=== PATIENT | female | born 1970 | race Caucasian/White ===

== ENCOUNTER 2017-03-08 22:52 | Emergency (ER) | payer OTHER ==
[~2017-03-08] VITALS: Ht 165.1 cm; Wt 92.7 kg
[~2017-03-08 22:52] MED LIST: FOLI1TAB8 PO; LEVO100T35 PO; MULTTAB58 PO
[2017-03-08 22:53] VITALS: TEMP 36.6; Ht 165.1 cm; Wt 92.7 kg
[2017-03-08] MEDS ORDERED: LEVO100T7 PO (23:13)
[2017-03-08] MEDS ORDERED: VITACAP26 PO (23:14)
[2017-03-08] MEDS ORDERED: ERGO500037 PO (23:15)
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
[2017-03-08] MEDS ORDERED: OPTIRAY 320 IV PRN (23:45)
[2017-03-08 23:57] LABS: BASO % 0.3 %; BASO ABS # 0.02 K/uL (0-0.2); COMPLETE YES; EOS % 4.8 %; HEMATOCRIT 40.2 % (37-47); IG% 0.2 %; LYMPH % 44.3 %; LYMPH ABS # 2.85 K/uL (1.2-3.4); MEAN CELL VOLUME 94.8 fL (80-100); MEAN CORPUSCULAR HEMOGLOBIN 30.9 pg (25-34); MEAN CORPUSCULAR HGB CONC 32.6 g/dl (32-36); MEAN PLATELET VOLUME 9.7 fL (7.4-10.4); MONO % 7.6 %; NEUT % 42.8 %; PLATELET COUNT 207 K/uL (130-400); RED BLOOD COUNT 4.24 M/uL (4.2-5.4); WHITE BLOOD COUNT 6.44 K/uL (4.8-10.8)
[2017-03-09 00:13] LABS: BUN/CREATININE RATIO 22.1 (10-20); CREATININE 0.77 mg/dl (0.60-1.20); POTASSIUM 3.5 mmol/L (3.5-5.1)
[2017-03-09] MEDS ORDERED: ACETAMINOPHEN 500 MG TAB PO STA (00:15)
[2017-03-09 00:16] LABS: ALB/GLOB RATIO 1.1 (0.9-2)
[2017-03-09] MEDS ORDERED: PENICILLIN V POTASSIUM 250 MG TAB PO ONE (02:00)
[2017-03-09] MEDS ORDERED: TRAMADOL HCL 50 MG HOME PACK PO ONE (02:15)
[2017-03-09] MEDS ORDERED: PENI-82 PO (02:21)
[2017-03-09] MEDS ORDERED: TRAM-10 PO (02:21)
[2017-03-09 02:24] VITALS: BP 123/88; PULSE 74; O2SAT 98
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
== END 2017-03-09 02:28 | disposition home or self-care (01) ==
LOC: C.EDB 22:53
DX: K08.89 Other specified disorders of teeth and supporting structures (principal); R68.84 Jaw pain; Z79.899 Other long term (current) drug therapy

== ENCOUNTER 2017-03-14 17:51 | Emergency (ER) | payer OTHER ==
[~2017-03-14] VITALS: Ht 167.6 cm; Wt 90.5 kg
[~2017-03-14 17:51] MED LIST changes: +ERGO500037 PO; -FOLI1TAB8 PO; -LEVO100T35 PO; +LEVO100T7 PO; +PENI-82 PO; +TRAM-10 PO; +VITACAP26 PO
[2017-03-14 17:57] VITALS: TEMP 36.6; Ht 167.6 cm; Wt 90.5 kg
[2017-03-14] MEDS ORDERED: MoRPHine SULFATE 2 MG/ML CARP IV STA (18:18)
[2017-03-14] MEDS ORDERED: ONDANSETRON INJ 2 MG/ML 2 ML VIAL IV STA (18:18)
[2017-03-14] MEDS ORDERED: OPTIRAY 320 IV PRN (18:30)
--- NOTE | 2017-03-14 19:10 | DIAGNOSTIC IMAGING REPORT ---
SOFT TISSUE NECK WITH HISTORY: 46 years-old Female recent dental abscess; pain extending into R thoart, painfull sw acute throat pain COMPARISON: Maxillofacial CT 03/09/2017 TECHNIQUE: Multiple axial CT images of the soft tissues of the neck were obtained following the intravenous ministration of 116 mL Optiray 320 IV contrast. A dose lowering technique was used consistent with the principals of SUGEY. FINDINGS: The nasopharynx, oral pharynx and hypopharynx are patent and unremarkable. No peritonsillar abscess. The lingual, palatine and adenoid tonsils are unremarkable. The vallecula and piriform sinuses are within normal limits. The epiglottis and aryepiglottic folds are unremarkable. There is a hyperattenuating ovoid smoothly marginated 1.4 x 0.6 x 1.2 cm lesion anterior to the right piriform sinus within the preglottic fat without invasion into adjacent structures. Glottis is unremarkable. Subglottic airway appears patent. Carotid vessels appear patent. The bilateral orbits are within normal limits. The parotid and submandibular glands are within normal limits. Mildly prominent bilateral level 1 and level 2 lymph nodes are noted with a level 1 lymph nodes on the right measuring up to 8 mm in short axis, likely reactive. There is mild soft tissue swelling of the right mandibular soft tissues. Lung apices are generally clear. Mild degenerative changes of the cervical spine. Mastoid air cells and middle ear cavities are clear. Moderate mucosal thickening of the ethmoid air cells, maxillary and right sphenoid sinuses with associated bubbly secretions. No large periapical cysts of the teeth identified. Multiple dental caries. No facial bone fracture or dislocation. IMPRESSION: 1. Mild soft tissue swelling of the right mandibular tissues with associated dental caries. No large periapical cysts or drainable fluid collection to suggest abscess. 2. Moderate paranasal sinus disease. 3. 1.4 cm ovoid smoothly marginated soft tissue lesion anterior to the right piriform sinus within the preglottic fat is noted with similar attenuation characteristics to the thyroid. This is nonspecific and may reflect ectopic thyroid tissue or other soft tissue lesion. No invasion into the adjacent structures identified. This is favored to reflect a benign entity, however is indeterminate and a 3 month follow-up noncontrast CT of the neck is recommended. If the noncontrast attenuation characteristics are the same as thyroid parenchyma, that would be confirmatory of ectopic thyroid tissue. 4. Mildly prominent likely reactive right level 1 and level 2 lymph nodes. The above report was generated using voice recognition software. It may contain grammatical, syntax or spelling errors. Electronically signed by: Robert Avilez M.D. 03/14/2017 7:08 PM Dictated Date/Time: 03/14/2017 6:50 PM
[2017-03-14] MEDS ORDERED: AMOXICIL/CLAVU 875MG HOME PACK PO ONE (19:45)
[2017-03-14] MEDS ORDERED: NORCO 5/325MG HOME PACK PO ONE (19:45)
[2017-03-14] MEDS ORDERED: AMOX875T PO (19:47)
[2017-03-14 19:55] VITALS: BP 124/76; PULSE 77; O2SAT 99
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
== END 2017-03-14 19:55 | disposition home or self-care (01) ==
LOC: C.EDB 17:51 → C.EDD 19:55
DX: K04.7 Periapical abscess without sinus (principal); E03.9 Hypothyroidism, unspecified; J45.909 Unspecified asthma, uncomplicated; Z79.899 Other long term (current) drug therapy